=== PATIENT | male | born 1945 | race Caucasian/White ===

== ENCOUNTER 2024-12-18 12:45 | Emergency (ER) | payer MEDICARE, OTHER ==
[~2024-12-18] VITALS: Ht 182.9 cm; Wt 134.8 kg
[2024-12-18 13:20] LABS: BASOPHILS # (AUTO) 0.1 X10'3 (0-0.2); BASOPHILS % (AUTO) 0.4 % (0-1); EOSINOPHILS # (AUTO) 0.2 X10'3 (0-0.9); EOSINOPHILS % (AUTO) 1.7 % (0-6); HEMATOCRIT 49.9 % (42.0-52.0); HEMOGLOBIN 16.5 g/dl (14.0-17.9); LYMPHOCYTES # (AUTO) 0.9 X10'3 (1.1-4.8); LYMPHOCYTES % (AUTO) 6.6 % (21-51); MEAN CORPUSCULAR VOLUME 90.9 FL (78-98); MEAN PLATELET VOLUME 8.2 FL (7.4-10.4); MONOCYTES # (AUTO) 1.2 X10'3 (0-0.9); MONOCYTES % (AUTO) 8.8 % (2-12); NEUTROPHILS # (AUTO) 11.1 X10'3 (1.8-7.7); NEUTROPHILS % (AUTO) 82.5 % (42-75); PLATELET COUNT 174 X10'3 (140-440); RED BLOOD COUNT 5.49 X10'6 (4.70-6.10); RED CELL DISTRIBUTION WIDTH 15.2 % (11.5-14.5); WHITE BLOOD COUNT 13.5 X10'3 (4.5-11.0)
[2024-12-18] MEDS: methylPREDNISolone sod succ 125mg/2ml vial IV ONE (13:24)
[2024-12-18 13:31] LABS: ALANINE AMINOTRANSFERASE 20 U/L (12-78); ALBUMIN 3.3 G/DL (3.4-5.0); ALBUMIN/GLOBULIN RATIO 0.9 (1.1-1.5); ALKALINE PHOSPHATASE 95 IU/L (46-116); ANION GAP 5 (8-16); ASPARTATE AMINO TRANSFERASE 14 U/L (10-37); BILIRUBIN,TOTAL 1.9 MG/DL (0.1-1.0); BLOOD UREA NITROGEN 19 MG/DL (7-18); BUN/CREATININE RATIO 16.5 (10.0-20.0); CALCIUM 8.8 MG/DL (8.5-10.1); CHLORIDE 105 MMOL/L (99-107); CREATININE 1.15 MG/DL (0.60-1.10); GLUCOSE 100 MG/DL (70-104); POTASSIUM 4.5 MMOL/L (3.5-5.1); SODIUM 139 MMOL/L (135-145); TOTAL CARBON DIOXIDE 28.8 MMOL/L (24-32); TOTAL PROTEIN 6.9 G/DL (6.4-8.2); eCRCL 59 ML/MIN; eGFR 62 ML/MIN
[2024-12-18] MEDS: ipratropium/albuterol 3ml nebule NEB STA (13:35)
[2024-12-18 13:36] VITALS: PULSE 80; RESP 22
[2024-12-18 13:37] LABS: PRO BRAIN NATRIURETIC PEPTIDE 298 PG/ML (0-450)
[2024-12-18 13:43] VITALS: PULSE 77; RESP 24; O2SAT 97
[2024-12-18] MEDS: azithromycin/NS 500mg/250ml 250 ML IV STA (14:41)
[2024-12-18] MEDS: CefTRIAXone 2gm/D5W 50ml BAG 50 ML IV STA (14:42)
[2024-12-18] MEDS ORDERED: PRED50TA PO (17:13)
[2024-12-18] MEDS ORDERED: AZIT-164 PO (17:13)
[2024-12-18 17:37] VITALS: BP 152/77; PULSE 75; RESP 16; TEMP 98.3; O2SAT 92
== END 2024-12-18 17:40 | disposition home or self-care (01) ==
LOC: ER 12:46
DX: J44.1 Chronic obstructive pulmonary disease with (acute) exacerbation (principal); I25.10 Atherosclerotic heart disease of native coronary artery without angina pectoris
CPT/HCPCS: 36415; 71045; 80053; 83880; 84484; 85025; 93005; 94640; 96365; 96368; 96375; 99285; A4615; J0456; J0696; J2919; 94760